=== PATIENT | female | born 1970 | race Caucasian/White ===

== ENCOUNTER → 2018-09-11 | Outpatient (CLI) | payer OTHER ==
[~2018-09-11] MED LIST: GADOBUTROL 7.5 MMOL/7.5 ML PFS ONE
== END | disposition home or self-care (01) ==
LOC: CFH 15:11
PROVIDERS: ATTEND Psychiatry & Neurology Neurology
DX: G35 Multiple sclerosis (principal)
CPT/HCPCS: 70553; A9585

== ENCOUNTER 2018-10-06 11:08 | Emergency (ER) | payer OTHER ==
[~2018-10-06] VITALS: Ht 170.2 cm; Wt 61.9 kg
--- NOTE | 2018-10-06 11:42 | NUR ---
LOW BACK PAIN AND BILATERAL KNEE PAIN AFTER LOSING BALANCE WHILE 5 FEET UP ON LADDER AND LANDING ON FEET
[2018-10-06] MEDS ORDERED: CYCLOBENZAPRINE 10 MG TABLET ONE (11:45)
[2018-10-06] MEDS ORDERED: IBUPROFEN 200 MG TABLET ONE (11:46)
[2018-10-06] MEDS ORDERED: OXYcodone/APAP 5/325MG TABLET ONE (11:46)
[2018-10-06] MEDS ORDERED: CYCLOBENZAPRINE 10 MG TABLET PO ONE (12:00)
[2018-10-06] MEDS ORDERED: OXYcodone/APAP 5/325MG TABLET PO ONE (12:00)
[2018-10-06] MEDS ORDERED: IBUPROFEN 800 MG TABLET PO ONE (12:00)
--- NOTE | 2018-10-06 12:40 | NUR ---
PAIN IMPROVED SINCE MEDICATED. GIVEN DISCHARGE INSTRUCTIONS AND AMBULATED WITHOUT ASSISTANCE TO DISCHARGE WINDOW
[2018-10-06 12:41] VITALS: BP 138/64
== END 2018-10-06 12:43 | disposition home or self-care (01) ==
LOC: ED 12:14
DX: S39.012A Strain of muscle, fascia and tendon of lower back, initial encounter (principal); S33.5XXA Sprain of ligaments of lumbar spine, initial encounter; G89.11 Acute pain due to trauma; J45.909 Unspecified asthma, uncomplicated; X58.XXXA Exposure to other specified factors, initial encounter; Y93.89 Activity, other specified; Y92.89 Other specified places as the place of occurrence of the external cause; Y99.8 Other external cause status
CPT/HCPCS: 72110; 99284